=== PATIENT | female | born 1960 | race Caucasian/White ===

== ENCOUNTER 2020-07-15 04:55 | Emergency (ER) | payer MEDICAID ==
[2020-07-15 05:43] LABS: CHLORIDE,CL 105 mmol/L (98-107); SODIUM,NA 141 mmol/L (136-145)
--- NOTE | 2020-07-15 06:00 | EDM.PDOC ---
ED HPI GENERAL MEDICAL PROBLEM - General Chief Complaint: Abdominal Pain Stated Complaint: right flank/abd pain Time Seen by Provider: 07/15/20 05:38 Source of Information: Reports: Patient History Limitations: Reports: No Limitations - History of Present Illness INITIAL COMMENTS - FREE TEXT/NARRATIVE: Patient comes to ER with right sided flank pain/abd discomfort that started yesterday after work. Sharp at times. Feels better sitting up. No nausea/vomiting/fevers. Had normal BM yesterday. No other changes/complaints. Hx diverticulosis. Thought she had gallbladder attack several nights ago--described pain that started in epigastric area that eventually radiated to both sides of upper abdomen. That resolved on own. 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, Other (see below) Other Treatments PAINT FACTORY WORKER: ibuprofen Right Lower Abdominal Pain Score (Numeric/FACES): 8 - Related Data Allergies Allergy/AdvReac Type Severity Reaction Status Date / Time Sulfa (Sulfonamide Allergy Itching Verified 07/15/20 05:18 Antibiotics) Home Meds: Home Meds Citalopram [Celexa] 20 mg PO DAILY 04/09/15 [History] Losartan/Hydrochlorothiazide [Losartan-HCTZ 50-12.5 MG] 1 each PO DAILY 07/15/20 [History] atorvaSTATin [Lipitor] 40 mg PO BEDTIME 07/15/20 [History] Past Medical History Cardiovascular History: Reports: High Cholesterol, Hypertension Other Cardiovascular History: history of HTN but less after diet modifications. Respiratory History: Reports: COPD Other Respiratory History: h\o bronchitis and pneumonias Gastrointestinal History: Reports: Diverticulosis Other Gastrointestinal History: scar tissue on ovaries. 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 Psychiatric History: Reports: Anxiety, Depression Endocrine/Metabolic History: Reports: Obesity/BMI 30+ - Past Surgical History HEENT Surgical History: Reports: Tonsillectomy GI Surgical History: Reports: Colonoscopy Female Surgical History: Reports: Tubal Ligation Social & Family History - Tobacco Use Tobacco Use Status *Q: Current Every Day Tobacco User Years of Tobacco use: 40 Packs/Tins Daily: 0.3 ED ROS GENERAL - Review of Systems Review Of Systems: See Below Constitutional: Reports: No Symptoms HEENT: Reports: No Symptoms Respiratory: Reports: No Symptoms Cardiovascular: Reports: No Symptoms GI/Abdominal: Reports: Abdominal Pain. Denies: Black Stool, Bloody Stool, Constipation, Diarrhea, Difficulty Swallowing, Distension, Nausea, Vomiting : Reports: No Symptoms Musculoskeletal: Reports: Other (no acute changes from baseline) Skin: Reports: No Symptoms Neurological: Reports: No Symptoms Psychiatric: Reports: No Symptoms ED EXAM, GENERAL - Physical Exam Exam: See Below Exam Limited By: No Limitations General Appearance: Alert, WD/WN, No Apparent Distress Eye Exam: Bilateral Eye: EOMI, PERRL Ears: Hearing Grossly Normal Nose: No: Nasal Deformity, Nasal Swelling, Nasal Drainage Throat/Mouth: Normal Lips, Normal Voice, No Airway Compromise Head: Atraumatic, Normocephalic Neck: Supple, Non-Tender, Full Range of Motion Respiratory/Chest: No Respiratory Distress, Lungs Clear, Normal Breath Sounds, No Accessory Muscle Use Cardiovascular: Regular Rate, Rhythm, No Murmur GI/Abdominal: Soft, No Distention, Tender (right lower quadrant), Abnormal Bowel Sounds (diminished throughout), Hernia (ventral hernia), Mass (faint sensation of mass/firmness noted with palpation RLQ. Pain complaint reproduced with palpation in this area. ) (Female) Exam: Deferred Rectal (Female) Exam: Deferred Back Exam: No: CVA Tenderness (L), CVA Tenderness (R), Muscle Spasm, Paraspinal Tenderness, Vertebral Tenderness Extremities: Non-Tender, Normal Capillary Refill Neurological: Alert, Oriented, Normal Cognition, Normal Gait, No Motor/Sensory Deficits Psychiatric: Normal Affect, Normal Mood Skin Exam: Warm, Dry, Intact, Normal Color #1 Interpretation EKG Date: 07/15/20 Time: 06:31 Rhythm: NSR Rate (Beats/Min): 71 [place]: Normal P-Wave: Present QRS: Normal ST-T: Normal QT: Normal Course - Vital Signs Last Recorded V/S: Last Vital Signs Temp 36.3 C 07/15/20 05:00 Pulse 75 07/15/20 07:11 Resp 16 07/15/20 07:11 BP 137/86 07/15/20 07:11 Pulse Ox 94 L 07/15/20 07:11 - Orders/Labs/Meds Orders: Active Orders 24 hr Category Date Time Status EKG Documentation Completion [RC] ASDIRECTED Care 07/15/20 06:01 Active Abdomen wo Cont [CT] Stat Exams 07/15/20 05:13 Taken Sodium Chloride 0.9% [Saline Flush] Med 07/15/20 06:24 Active 10 ml FLUSH ASDIRECTED PRN Medication Orders Sodium Chloride (Saline Flush) 10 ml FLUSH ASDIRECTED PRN PRN Reason: Keep Vein Open Last Admin: 07/15/20 06:26 Dose: 10 ml Documented by: ALICJA Labs: Laboratory Tests 07/15/20 07/15/20 07/15/20 Range/Units 05:00 05:15 05:15 WBC 5.3 (4.0-10.2) K/uL RBC 4.72 (3.77-5.09) M/uL Hgb 14.2 (11.7-15.5) g/dL Hct 43.6 (34.0-46.0) % MCV 92.4 (84.0-98.0) fL MCH 30.1 (28.2-33.3) pg MCHC 32.6 (31.7-36.0) g/dL RDW 13.6 (11.2-14.1) % Plt Count 178 (150-350) K/uL Neut % (Auto) 54.4 (45.0-80.0) % Lymph % (Auto) 30.6 (10.0-50.0) % [place] % (Auto) 11.2 (2.0-14.0) % Eos % (Auto) 3.4 (0.0-5.0) % Baso % (Auto) 0.4 (0.0-2.0) % Neut # (Auto) 2.88 (1.40-7.00) K/uL Lymph # (Auto) 1.62 (0.50-3.50) K/uL [place] # (Auto) 0.59 (0.00-1.00) K/uL Eos # (Auto) 0.18 (0.00-0.50) K/uL Baso # (Auto) 0.02 (0.00-0.20) K/uL Sodium 141 (136-145) mmol/L Potassium 4.1 (3.5-5.1) mmol/L Chloride 105 (98-107) mmol/L Carbon Dioxide 29.4 (21.0-32.0) mmol/L BUN 24 H (7-18) mg/dL Creatinine 0.78 (0.51-1.17) mg/dL Est Cr Clr Drug Dosing 69.02 mL/min Estimated GFR (MDRD) > 60 mL/min Glucose 103 (74-106) mg/dL Calcium 8.9 (8.5-10.1) mg/dL Magnesium 1.8 (1.8-2.4) mg/dL Total Bilirubin 0.3 (0.2-1.0) mg/dL AST 20 (15-37) U/L ALT 29 (12-78) U/L Alkaline Phosphatase 96 (46-116) IU/L Troponin I (0.000-0.056) ng/mL Total Protein 6.9 (6.4-8.2) g/dL Albumin 3.6 (3.4-5.0) g/dL Amylase 109 (25-115) U/L Lipase 169 (73-393) U/L Specimen Type Urincc Urine Color Yellow Urine Appearance Slightly cloudy Urine pH 5.0 (5.0-9.0) Ur Specific [place] >= 1.030 (1.005-1.030) Urine Protein Negative (NEGATIVE) mg/dL Urine Glucose (UA) Negative (NEGATIVE) mg/dL Urine Ketones Negative (NEGATIVE) mg/dL Urine Occult Blood Trace-intact H (NEGATIVE) Urine Nitrite Negative (NEGATIVE) Urine Bilirubin Negative (NEGATIVE) Urine Urobilinogen 0.2 (0.2-1.0) E.U./dL Ur Leukocyte Esterase Negative (NEGATIVE) Urine RBC 0-5 /HPF Urine WBC 0-5 /HPF Ur Epithelial Cells Moderate H /LPF Urine Bacteria Few (NONE TO FEW) /HPF 07/15/20 Range/Units 05:15 WBC (4.0-10.2) K/uL RBC (3.77-5.09) M/uL Hgb (11.7-15.5) g/dL Hct (34.0-46.0) % MCV (84.0-98.0) fL MCH (28.2-33.3) pg MCHC (31.7-36.0) g/dL RDW (11.2-14.1) % Plt Count (150-350) K/uL Neut % (Auto) (45.0-80.0) % Lymph % (Auto) (10.0-50.0) % [place] % (Auto) (2.0-14.0) % Eos % (Auto) (0.0-5.0) % Baso % (Auto) (0.0-2.0) % Neut # (Auto) (1.40-7.00) K/uL Lymph # (Auto) (0.50-3.50) K/uL [place] # (Auto) (0.00-1.00) K/uL Eos # (Auto) (0.00-0.50) K/uL Baso # (Auto) (0.00-0.20) K/uL Sodium (136-145) mmol/L Potassium (3.5-5.1) mmol/L Chloride (98-107) mmol/L Carbon Dioxide (21.0-32.0) mmol/L BUN (7-18) mg/dL Creatinine (0.51-1.17) mg/dL Est Cr Clr Drug Dosing mL/min Estimated GFR (MDRD) mL/min Glucose (74-106) mg/dL Calcium (8.5-10.1) mg/dL Magnesium (1.8-2.4) mg/dL Total Bilirubin (0.2-1.0) mg/dL AST (15-37) U/L ALT (12-78) U/L Alkaline Phosphatase (46-116) IU/L Troponin I 0.000 (0.000-0.056) ng/mL Total Protein (6.4-8.2) g/dL Albumin (3.4-5.0) g/dL Amylase (25-115) U/L Lipase (73-393) U/L Specimen Type Urine Color Urine Appearance Urine pH (5.0-9.0) Ur Specific [place] (1.005-1.030) Urine Protein (NEGATIVE) mg/dL Urine Glucose (UA) (NEGATIVE) mg/dL Urine Ketones (NEGATIVE) mg/dL Urine Occult Blood (NEGATIVE) Urine Nitrite (NEGATIVE) Urine Bilirubin (NEGATIVE) Urine Urobilinogen (0.2-1.0) E.U./dL Ur Leukocyte Esterase (NEGATIVE) Urine RBC /HPF Urine WBC /HPF Ur Epithelial Cells /LPF Urine Bacteria (NONE TO FEW) /HPF Meds: Medications Generic Name Dose Route Start Last Admin Trade Name Dez PRN Reason Stop Dose Admin Sodium Chloride 10 ml 07/15/20 06:24 07/15/20 06:26 Saline Flush FLUSH 10 ml ASDIRECTED PRN Administration Keep Vein Open Discontinued Medications Generic Name Dose Route Start Last Admin Trade Name Dez PRN Reason Stop Dose Admin Sodium Chloride 1,000 mls @ 500 mls/hr 07/15/20 06:08 07/15/20 06:10 Normal Saline IV 07/15/20 08:07 500 mls/hr .BOLUS ONE Administration Ketorolac Tromethamine 30 mg 07/15/20 06:01 07/15/20 06:05 Toradol IVPUSH 07/15/20 06:02 30 mg ONETIME ONE Administration - Re-Assessments/Exams Free Text/Narrative Re-Assessment/Exam: 07/15/20 06:04 CBC/Chem/Amylase/Lipase/UA requested. Noncontrast CT of abd/pelvis requested. Later a Troponin and EKG were added when patient described having epigastric pain the other night. Initial labs overall unremarkable. CT however showed several masses, one central lower pelvis and one in RLQ, that Radiology feels needs to be further evaluated by MRI. No evidence of kidney stone/appendicitis/diverticulitis per initial report. Patient wants to wait until Saturday to get the MRI here locally. Declines transfer to [place] to get study performed today. IV fluids/Toradol ordered. Free Text/Narrative Re-Assessment/Exam: 07/15/20 08:56 Pain improved to 3. Patient received IV fluid bolus prior to discharge as she has not wanted to eat/drink much since pain started yesterday. Tramadol pack of 10 dispensed to patient to take PRN pain, 1 every 6 hours. To return to ER if she has sudden worsening problems. Departure - Departure Time of Disposition: 08:00 Disposition: Home, Self-Care 01 Condition: Good Clinical Impression: Abdominal mass Qualifiers: Abdominal location: right lower quadrant Qualified Code(s): R19.03 - Right lower quadrant abdominal swelling, mass and lump - Discharge Information *PRESCRIPTION DRUG MONITORING PROGRAM REVIEWED*: Not Applicable *COPY OF PRESCRIPTION DRUG MONITORING REPORT IN PATIENT [facility]: Not Applicable Referrals: Martine Stone NP [Primary Care Provider] - Forms: ED Department Discharge Additional Instructions: Follow up as scheduled for MRI study of abdomen and pelvis Saturday. Call for follow up appointment next week at clinic to review results. Further planning/appointments as needed at that time. Follow up in ER if you have sudden worsening problems. Sepsis Event Note (ED) - Evaluation Sepsis Screening Result: No Definite Risk - Focused Exam Vital Signs: Vital Signs Temp Pulse Resp BP Pulse Ox 07/15/20 07:11 75 16 137/86 94 L 07/15/20 05:00 36.3 C 85 20 152/88 H 98 - My Orders Last 24 Hours: My Active Orders 07/15/20 05:13 Abdomen wo Cont [CT] Stat 07/15/20 06:01 EKG Documentation Completion [RC] ASDIRECTED 07/15/20 06:24 Sodium Chloride 0.9% [Saline Flush] 10 ml FLUSH ASDIRECTED PRN - Assessment/Plan Last 24 Hours: My Active Orders 07/15/20 05:13 Abdomen wo Cont [CT] Stat 07/15/20 06:01 EKG Documentation Completion [RC] ASDIRECTED 07/15/20 06:24 Sodium Chloride 0.9% [Saline Flush] 10 ml FLUSH ASDIRECTED PRN
[2020-07-15] MEDS ORDERED: Ketorolac 30 MG/ML SDV IVPUSH ONE (06:01)
[2020-07-15] MEDS ORDERED: Sodium Chloride 0.9% 1,000 ML IV ONE (06:08)
[2020-07-15] MEDS ORDERED: Sodium Chloride 0.9% 10 ML Syringe FLUSH PRN (06:24)
[2020-07-15 07:28] VITALS: BP 137/86; PULSE 75
== END 2020-07-15 08:40 | disposition home or self-care (01) ==
LOC: LL.ED 04:55
DX: R19.03 Right lower quadrant abdominal swelling, mass and lump (principal); E78.00 Pure hypercholesterolemia, unspecified; I10 Essential (primary) hypertension; J44.9 Chronic obstructive pulmonary disease, unspecified; F41.9 Anxiety disorder, unspecified; F32.9 Major depressive disorder, single episode, unspecified; E66.9 Obesity, unspecified; F17.210 Nicotine dependence, cigarettes, uncomplicated; Z68.38 Body mass index [BMI] 38.0-38.9, adult; Z88.2 Allergy status to sulfonamides; Z79.899 Other long term (current) drug therapy
CPT/HCPCS: 36415; 74150; 80053; 81001; 82150; 83690; 83735; 84484; 85025; 93005; 93010; 96374; 99284; 99284-25; J1885; J7030